=== PATIENT | male | born 1950 | race Caucasian/White ===

== ENCOUNTER → 2016-08-21 | Outpatient (CLI) | payer OTHER, BC ==
[~2016-08-21] MED LIST: ACETYLCYST1000 MG/10; ADULT LOW DOSE81 MG PO; AGGRENOX 25 MG1 EACH PO; CHLORTHALIDONE25 MG PO; CILOSTAZOL 100100 M1 PO; CLONIDINE PO; CO Q-10100 MG PO; COZAAR 50 MG TA50 M2 PO; COZAAR100 MG PO; CRESTOR10 MG PO; FENOFIBRATE160 MG PO; FOLIC ACID1 MG PO; HYDRALAZINE 10M10 MG PO; HYDRALAZINE 2525 MG PO; KEFLEX500 MG PO; LORTAB 5 MG/5001 TA1 PO; LOVASTAT40 PO; MOMETASONE FURO45 G1 TOP; NEURONTIN300 MG PO; NITROGLYCERIN0.4 MG SUBLING; NORTRIPTYLINE H10 M1 PO; NORVASC5 MG PO; OMEGA-31000 MG PO; OXYCODONE HCL 55 MG PO; PERCOCET 10-321 EACH PO; PLAVIX 75 MG TA75 MG PO; PRAVACHOL20 MG PO; PRILOSEC 20 MG20 MG PO; PROAIR HFA8.5 GM; PROTONIX40 M2 PO; SIMVASTATIN40 MG PO; TOPROL XL100 MG PO; TRICOR145 MG PO; TYLENOL325 MG PO; VITAMIN D31000 UNI2 PO; ZESTORETIC 20-1 EAC1 PO
== END | disposition home or self-care (01) ==
LOC: SPEC 14:16 → ULTRA 15:29
DX: I77.89 Other specified disorders of arteries and arterioles (principal); I73.9 Peripheral vascular disease, unspecified; Z98.890 Other specified postprocedural states; Z88.8 Allergy status to other drugs, medicaments and biological substances

== ENCOUNTER → 2019-04-20 | Outpatient (CLI) | payer OTHER, MEDICARE | LOC: SJCVCIMAG 03-27 15:00 | DX: E11.51 Type 2 diabetes mellitus with diabetic peripheral angiopathy without gangrene (principal); I73.9 Peripheral vascular disease, unspecified; I65.23 Occlusion and stenosis of bilateral carotid arteries; Z95.828 Presence of other vascular implants and grafts; Z87.891 Personal history of nicotine dependence ==